=== PATIENT | female | born 1970 | race African-American/Black ===

== ENCOUNTER 2020-04-10 04:32 | Day surgery (SDC) | payer OTHER ==
[2020-04-09 09:30] VITALS: BMI 35.2
[2020-04-10] MEDS ORDERED: LIDOCAINE 1%/EPI 1:100000 (50 ML MULTI DOSE VIAL) ONE (08:50)
[2020-04-10] MEDS ORDERED: MIDAZOLAM HCL 2 MG/2 ML SINGLE DOSE VIAL ONE (08:53)
[2020-04-10] MEDS ORDERED: PROPOFOL 20 ML ONE (08:53)
[2020-04-10] MEDS ORDERED: KETOROLAC TROMETHAMINE 30 MG/1 ML VIAL ONE (08:55)
[2020-04-10] MEDS ORDERED: DEXAMETHASONE SOD PHOSPHATE 4 MG/1 ML VIAL ONE (08:55)
[2020-04-10] MEDS ORDERED: LIDOCAINE HCL/PF 2% SDV 5ML VIAL ONE (08:55)
[2020-04-10] MEDS ORDERED: ceFAZolin SODIUM 1 GM VIAL ONE (08:55)
[2020-04-10] MEDS ORDERED: SEVOFLURANE 250 ML BTL ONE (09:49)
[2020-04-10] MEDS ORDERED: ceFAZolin SODIUM 1 GM VIAL IVPB ONE (10:27)
[2020-04-10] MEDS ORDERED: oxyCODONE HCL 5 MG TABLET PO PRN (10:33)
[2020-04-10] MEDS ORDERED: ONDANSETRON 4 MG/2 ML VIAL IVPUSH PRN (10:33)
[2020-04-10] MEDS ORDERED: LIDOCAINE 1%/EPI 1:100000 (20 ML MULTI DOSE VIAL) IJ ONE (10:35)
[2020-04-10] MEDS ORDERED: LACTATED RINGERS SOLUTION 1,000 ML IV SCH (10:45)
[2020-04-10] MEDS ORDERED: BENZOIN/ALOE VERA/STORAX/TOLU 58 ML BOTTLE ONE (11:01)
[2020-04-10] MEDS ORDERED: BUPIVACAINE HCL/PF 0.5% (5 MG/ML) 30 ML VIAL IJ ONE (11:02)
[2020-04-10] MEDS ORDERED: BENZOIN/ALOE VERA/STORAX/TOLU 58 ML BOTTLE TP ONE (11:03)
[2020-04-10 13:56] VITALS: BP 120/70; PULSE 68; TEMP 98
== END 2020-04-10 13:30 | disposition home or self-care (01) ==
LOC: JASU-SURG 04:32
PROVIDERS: ATTEND Surgery
PROC: 0JB50ZZ Excision of Left Neck Subcutaneous Tissue and Fascia, Open Approach (ICD-10-PCS; principal; 2020-04-10 10:00)
DX: D17.0 Benign lipomatous neoplasm of skin and subcutaneous tissue of head, face and neck (principal)
CPT/HCPCS: 81025; 88307-TC; 94760

== ENCOUNTER 2021-09-06 10:39 | Day surgery (SDC) | payer BC, OTHER ==
[2021-09-02 15:01] VITALS: BMI 34.0
[2021-09-06 13:38] VITALS: TEMP 97.1
[2021-09-06 14:14] VITALS: BP 122/84; PULSE 59
== END 2021-09-06 13:40 | disposition home or self-care (01) ==
LOC: FASU-ENDO 10:39
PROVIDERS: ATTEND Internal Medicine Gastroenterology
PROC: 0DBL8ZX Excision of Transverse Colon, Via Natural or Artificial Opening Endoscopic, Diagnostic (ICD-10-PCS; 2021-09-06)
PROC: 0DB98ZX Excision of Duodenum, Via Natural or Artificial Opening Endoscopic, Diagnostic (ICD-10-PCS; 2021-09-06)
PROC: 0DB68ZX Excision of Stomach, Via Natural or Artificial Opening Endoscopic, Diagnostic (ICD-10-PCS; 2021-09-06)
PROC: 0DBH8ZX Excision of Cecum, Via Natural or Artificial Opening Endoscopic, Diagnostic (ICD-10-PCS; principal; 2021-09-06 12:34)
DX: D50.9 Iron deficiency anemia, unspecified (principal); K63.3 Ulcer of intestine; D12.3 Benign neoplasm of transverse colon; B96.81 Helicobacter pylori [H. pylori] as the cause of diseases classified elsewhere; K29.50 Unspecified chronic gastritis without bleeding; K31.9 Disease of stomach and duodenum, unspecified
CPT/HCPCS: 84703; 88305-TC; 88342-TC